=== PATIENT | female | born 1955 | race Hispanic/Latino ===

== ENCOUNTER → 2019-06-26 | Day surgery (SDC) | payer OTHER ==
[~2019-06-26] MED LIST: ASPIR 8181 MG PO; CRESTOR10 MG PO; FENTANYL CITRATE/PF 100MCG/2 ML INJ ONE; GABAPENTIN300 MG PO; GLIMEPIRIDE2 MG PO; HYOSCYAMINE 0.125 MG TAB ONE; LISINOPRIL2.5 MG PO; METFORMIN HCL500 MG PO; MIDAZOLAM HCL 2 MG/2 ML VIAL ONE; OXYBUTYNIN CHLOR5 M1 PO; OZEMPIC1 MG/0.75 INJ; PROPOFOL IV EMULSION 10 MG/ML 20 ML VIAL ONE; VASCEPA1 GM PO
--- NOTE | 2019-06-26 18:09 | Operative Report ---
DATE OF PROCEDURE: 06/26/2019 SURGEON: Jono Gómez MD PROCEDURE: EGD with polypectomy. INDICATIONS FOR COLONOSCOPY: Surveillance colonoscopy, personal history of colon polyps. MEDICATIONS: The patient was done under MAC. Please see anesthesiologist's note. PROCEDURE IN DETAIL: With the patient in left lateral decubitus position, flexible fiberoptic Olympus colonoscope was inserted into the rectum with ease and advanced all the way to the cecum. A minute polyp was noted in the cecum that was removed per the cold biopsy forceps. Diverticular disease was noted throughout and other than diverticulosis, the colon appeared to be within normal limits. The scope was then retroflexed into the distal rectum and small internal hemorrhoids were noted, none of which was actively bleeding. The scope was then straightened out, it was subsequently withdrawn. The patient tolerated procedure well. IMPRESSION: 1. Cecal polyp, minute, removed per cold biopsy forceps. 2. Pandiverticulosis. 3. Internal hemorrhoids, none actively bleeding. PLAN: Follow up histology. Initiate high-fiber, low-fat diet. Initiate high-fiber supplement. The patient might benefit from a followup colonoscopy in 3 to 5 years. Jono Gómez MD [facility] [place]/[facility] /[id number] cc: Demetrio Gómez MD
== END | disposition home or self-care (01) ==
LOC: OR 13:26
PROVIDERS: ATTEND Internal Medicine Gastroenterology
DX: K59.09 Other constipation (principal); K63.5 Polyp of colon; K57.30 Diverticulosis of large intestine without perforation or abscess without bleeding; K64.8 Other hemorrhoids; I10 Essential (primary) hypertension; E78.00 Pure hypercholesterolemia, unspecified; E11.40 Type 2 diabetes mellitus with diabetic neuropathy, unspecified; Z01.810 Encounter for preprocedural cardiovascular examination; Z79.82 Long term (current) use of aspirin; Z79.84 Long term (current) use of oral hypoglycemic drugs; Z68.41 Body mass index [BMI] 40.0-44.9, adult
CPT/HCPCS: 36415; 45380; 82948; 93005; J2250; J2704; J3010

== ENCOUNTER 2020-01-25 15:39 | Emergency (ER) | payer OTHER ==
[~2020-01-25] VITALS: Ht 160 cm; Wt 107.5 kg
[~2020-01-25 15:39] MED LIST changes: -FENTANYL CITRATE/PF 100MCG/2 ML INJ ONE; -HYOSCYAMINE 0.125 MG TAB ONE; -MIDAZOLAM HCL 2 MG/2 ML VIAL ONE; -PROPOFOL IV EMULSION 10 MG/ML 20 ML VIAL ONE
--- OUTSIDE RECORDS SUMMARY | 2020-01-25 15:42 | XMS REPORT ---
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 D51.1 Active Problem Vitamin D deficiency, unspecified E55.9 Active Problem Essential (primary) hypertension I10 Active Problem Other fatigue R53.83 Active Problem Type 2 diabetes mellitus with hyperglycemia E11.65 Active Problem Hyperlipidemia, unspecified E78.5 Active Assessment Body mass index (BMI) 40.0-44.9, adult Z68.41 Active Problem Deficiency of other specified B group vitamins E53.8 Active Assessment Hyperlipidemia, unspecified E78.5 Active Problem Type 2 diabetes mellitus wit h diabetic polyneuropathy, without long-term current use of insulin E11.42 Active Assessment Type 2 diabetes mellitus with hyperglycemia E11.65 Active Problem Body mass index (BMI) of 40.0-44.9 in adult Z68.41 Active Medications Medication Code System Code Instructions Start Date End Date Status Dosage Vascepa [facility] [address]-06 1 GRAM Sep 09, 2016 Active not defined Glumetza [facility] 46417544465 1000 MG Orally BID Aug 04, 2014 Act micheal 1 tablet with evening meal Lisinopril [facility] 67372821046 2.5 MG Orally Once a day Active 1 tablet Glucophage XR [facility] 11129581991 500 MG Active TAKE TWO (2) TABLET(S) BY MOUTH TWICE A DAY. Oxybutynin Chloride ER [facility] 33767482859 15 MG Orally Once a day Active TAKE ONE (1) TABLET(S) BY MOUTH EVERY DAY. MetFORMIN HCl ER [facility] 04451501705 500 MG Orally Once a day Active 1 tablet with evening meal Gabapentin [facility] 59343195568 300 MG Orally Three times a day Aug 192016 Active 1 capsule Aspirin 81 [facility] 08711204521 81 MG Orally Once a day A ctive 1 tablet Glimepiride [facility] 96307282307 1 MG Orally Once a day A ctive 1 tablet with breakfast or the first main meal of the day Rosuvastatin Calcium [facility] 73608747231 20 MG Orally Once a day Active 1 tablet Vital Signs Date/Time: January 19, 2020 BMI 43.6 Index Weight 238.4 lbs Height 62.0 in Cardiac Monitoring Heart Rate 73 /min Blood Pressure Diastolic 60 mm Hg Blood Pressure Systolic 107 mm Hg Results No Known Results Summary Purpose [employer]ClinicalWorks Submission
--- OUTSIDE RECORDS SUMMARY | 2020-01-25 15:42 | XMS REPORT | Continuity of Care Document ---
Author Author [facility] t Organization [facility] Address [address] [place] [address] Phone Unavailable Care Team Providers Care Court Attendant Name Role Phone Unavailable Unavailable Problems Condition Name Condition Details Condition Category Status Onset Date Resolution Date Last Treatment Date Treating Clinician Comments Source Type 2 diabetes mellitus with hyperglyce lan, without long-term current use of insulin Type 2 diabetes mellitus with hyperglycemia, without long-term current use of insulin Active Problem 01/24/2020 [id number] Problem Active 2020-01-24 04:10:14 Natalie Rae 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 Active Problem 01/24/2020 2.16.840.1.980461.4.391.11.718727 Problem Active 2020-01-24 04:10:14 Sridhar Rae Vitamin D deficiency Monika min D deficiency Active Problem 01/24/2020 2.16.840.1.537024.4.391.11.146553 Problem Active 2020-01-24 04:10:14 Natalie Rae Body mass index (BMI) 40.0-44.9, adult Body mass index (BMI) 40.0-44.9, adult Active Problem 01/24/2020 2.16.840.1.581578.4.391.11.954169 Problem Active 2020-01-24 04:10:14 Sridhar Rae Vitamin B12 deficiency anemia due to michael ective vitamin B12 malabsorption with proteinuria Vitamin B12 defi ciency anemia due to selective vitamin B12 malabsorption with proteinuria Active Problem 01/24/2020 2.16.840.1.304614.4.391.11.706260 Problem Active 2020-01-24 04:10:14 Natalie Rae Essential (primary) hypertension Essential (primary) hypertension Active Problem 01/24/2020 2.16.840.1.261041.4.391.11.272946 Problem Active 2020-01-24 04:10:14 Memor gila Rae Other fatigue Othe r fatigue Active Problem 01/24/2020 2.16.840.1.114467.4.391.11.641835 Problem Active 2020-01-24 04:10:14 [facility] Hyperlipidemia, unspecified Hy perlipidemia, unspecified Active Problem 01/24/2020 2.16.840.1.755243.4.391.11.387650 Problem Ac tive 2020-01-24 04:10:14 [facility] Deficiency of other specified B group vitamins Deficiency of other specified B group vitamins Active Problem 01/24/2020 2.16.840.1.292489.4.391.11.624834 Problem Active 2020-01-24 04:10:14 [facility] Type 2 diabetes mellitus with diabetic p olyneuropathy, without long-term current use of insulin Type 2 diabetes mellitus with diabetic polyneuropathy, without long-term current use of insulin Active Problem 01/24/2020 2.16.840.1.666864.4.391.11.027852 Problem Active 2020-01-24 04:10:14 [facility] Bladder disorder Blad shankar disorder Active Diagnosis 01/24/2020 2.16.840.1.547125.4.391.11.693946 Diagnosis Active 2020-01-24 04:10:14 [facility] Allergies, Adverse Reactions, Alerts Allergy Name Allergy Type Status Severity Reaction(s) Onset Date Inacti ve Date Treating Clinician Comments Source N.K.D.A. N.K.D.A. Active Info Not Available 2020-01-19 00:00:00 [facility] Medications Ordered Medication Name Filled Medication Name Start Date Stop Da te Current Medication? Ordering Clinician Indication Dosage Frequency Signature (SIG) Comments Components Source Lisinopril 2020-01-24 04:10:14 Yes TRINA QUICK 1 tablet [facility] Glucophage XR 2020-01-24 04:10:14 Yes TRINA QUICK TAKE TWO (2) TABLET(S) BY MOUTH TWICE A DAY. [facility] Oxybutynin Chloride ER 2020-01-24 04:10:14 Yes TRINA MATT BISON TAKE ONE (1) TABLET(S) BY MOUTH EVERY DAY. Su Hanson MetFORMIN HCl ER 2020-01-24 04:10:14 Yes TRINA YNES 1 tablet with evening meal [facility] Aspirin 81 2020-01-24 04:10:14 Yes TRINA YNES 1 tablet [facility] Glimepiride 2020-01-24 04:10:14 Yes TRINA YNES 1 tablet with breakfast or the first main meal of the day [facility] Rosuvastatin Calcium 2020-01-24 04:10:14 Yes TRINA YNES 1 tablet [facility] Lisinopril 2020-01-24 04:10:14 Yes TRINA YNES TAKE ONE (1) TABLET(S) BY MOUTH ONCE A DAY. [facility] Farxiga 2020-01-24 04:10:14 Yes TRINA YNES TAKE ONE (1) TABLET(S) BY MOUTH ONCE A DAY. [facility] Vascepa 2020-01-24 04:10:14 Yes TRINA YNES TAKE TWO (2) CAPSULE(S) BY MOUTH TWICE A DAY WITH MEALS. Ada zuniga [place] Ozempic 2020-01-24 04:10:14 Yes TRINA YNES 1m g as directed [facility] 2020-01-19 00:00:00 Yes TRINA YNES 1 tablet at least 30 minutes before first food, beverage or other oral medicine of the day [facility] Rybelsus 2020-01-19 00:00:00 Yes TRINA YNES a s directed [facility] Farxiga 2020-01-19 00:00:00 Yes TRINA YNES 1 tablet [facility] Oxybutynin 2016-11-21 00:00:00 Yes TRINA YNES not defined [facility] Vascepa 2016-09-09 00:00:00 Yes TRINA YNES no t defined [facility] Gabapentin 2016-09-09 00:00:00 Yes TRINA YNES 1 capsule [facility] Trulicity 2015-09-01 00:00:00 Yes TRINA YNES not defined [facility] Decara 2015-05-18 00:00:00 Yes TRINA YNES not defined [facility] Glumetza 2014-08-04 00:00:00 Yes TRINA YNES 1 tablet with evening meal [facility] [place] Vital Signs Vital Name Observation Time Observation Value Comments Source Weight 2020-01-19 17:00:00 [facility] [place] Height 2020-01-19 17:00:00 [facility] [place] Heart Rate 2020-01-19 17:00:00 [facility] [place] Diastolic (mm Hg) 2020-01-19 17:00:00 [facility] Systolic (mm Hg) 2020-01-19 17:00:00 Sridhar [facility] [place] Weight 2020-01-19 16:50:00 [facility] Height 2020-01-19 16:50:00 [facility] [place] Heart Rate 2020-01-19 16:50:00 [facility] [place] Diastolic (mm Hg) 2020-01-19 16:50:00 [facility] [place] Systolic (mm Hg) 2020-01-19 16:50:00 Sridhar [facility] [place] Procedures This patient has no known procedures. Encounters Start Date/Time End Date/Time [facility] Source 2020-01-19 12:00:00 2020-01-19 12:00:00 Outpatient Trina Quick MD [place] [id number] [employer] 2020-01-19 11:50:00 2020-01-19 11:50:00 Outpatient Trina Quick MD [place] [id number] [employer] Results Test Description Test Time Test Comments Results Result Comments Source SCR MAMM BILATERAL SANDY CAD DIGITAL 2019-07-30 08:33:09 - SCR MAMM BILATERAL SANDY CAD DIGITALBILATERAL DIGITAL SCREENING MAMMOGRAM 3D/2D WITH CAD: 07/30/2019CLINICAL: Asymptomatic. Digital breast tomosynthesis was performed in addition to routine CC and MLO views. Current mammographic images were evaluated by either a [employer] M-Vu or a [employer] ImageChecker CAD (computer aided detection system). No prior exams were available for comparison. The tissue of both breasts is predominantly fatty. No suspicious mass, architectural distortion, malignant type calcification, or lymph node abnormality detected. IMPRESSION: NEGATIVEThere is no mammographic evidence of malignancy. Resume annual screening mammography in one year. Augustin Aquino M.D. ss/penrad:07/30/2019 08:33:09 Office Clerk Assistant: Billie QUIROZ, [facility]-FWletter sent: BIRADS 1-2 Normal Mammogram BI-RADS: 1 Negative
--- OUTSIDE RECORDS SUMMARY | 2020-01-25 15:42 | XMS REPORT ---
Author Author MARKELL QUICK Organization [employer] Address Unknown Phone Unavailable Care Team Providers Care Master Machinist Name Role Phone TRINA QUICK CP Unavailable Allergies, Adverse Reactions, Alerts Substance Reaction Event Type N.K.D.A. 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 malabsorption with proteinuria D51.1 Active Assessment Vitamin D deficiency, unspecified E55.9 Active Problem BMI 40.0-44.9, adult Z68.41 Active Problem Type 2 diabetes mellitus with hyperglycemia E11.65 Active Problem Deficiency of other specified B group vitamins E53.8 Active Problem Body mass index (BMI) 40.0-44.9, adult Z68.41 Active Problem Hyperlipidemia, unspecified E78.5 Active Assessment Essential (primary) hypertension I10 Active Assessment Body mass index (BMI) 40.0-44.9, adult Z68.41 Active Assessment Bladder disorder N32.9 Active Assessment Hyperlipidemia, unspecified E78.5 Active Problem Body mass index (BMI) of 40.0-44.9 in adult Z68.41 Active Problem Type 2 diabetes mellitus wit h hyperglycemia, without long-term current use of insulin E11.65 Active Assessment Type 2 diabetes mellitus wit h hyperglycemia, without long-term current use of insulin E11.65 Active Problem Vitamin D deficiency E55.9 Active Assessment half-way use of drug Z79.899 Active Problem Other halfway (current) drug therapy Z79.899 Active Medications Medication Code System Code Instructions Start Date End Date Status Dosage Vascepa [facility] [address]-65 1 GRAM Sep 09, 2016 Active not defined Lisinopril [facility] 35016483047 10 MG Active TAKE ONE (1) TABLET(S) BY MOUTH ONCE A DAY. Lisinopril [facility] 54552169435 2.5 MG Orally Once a day Active 1 tablet Gabapentin [facility] 02766221360 300 MG Orally Three times a day Aug 192016 Active 1 capsule Rybelsus [facility] 53184634596 7 MG Orally Once a day January 19, 2020 Active 1 tablet at least 30 minutes before first food, beverage or other oral medicine of the day Hubert [facility] [address]-60 50,000 UNIT May 18, 2015 Active not defined Rosuvastatin Calcium [facility] 43749566679 20 MG Orally Once a day Active 1 tablet Oxybutynin [facility] [address]-77 15 MG November 21, 2016 Active not defined Farxiga [facility] 70609832409 10 MG Active TAKE ONE (1) TABLET(S) BY MOUTH ONCE A DAY. Trulicity [facility] [address]-27 0.75 MG/0.5 Sep 01, 2015 Activ e not defined Rybelsus [facility] 08347810540 3 MG Orally Once a day January 19, 2020 Active as directed Vascepa [facility] 55311259939 1 GM Active TAKE TWO (2) CAPSULE(S) BY MOUTH TWICE A DAY WITH MEALS. Farxiga [facility] 75123556323 10 MG Orally Once a day January 19, 2020 Active 1 tablet Glumetza [facility] 19223176930 1000 MG Orally BID Aug 04, 2014 Act micheal 1 tablet with evening meal MetFORMIN HCl ER [facility] 59388874875 500 MG Orally Once a day Active 1 tablet with evening meal Ozempic [facility] 24909946025 1 MG/DOSE Subcutaneous once a week Active 1mg as directed Glimepiride [facility] 47399640289 1 MG Orally Once a day I nactive 1 tablet with breakfast or the first main meal of the day Glucophage XR [facility] 73731642719 500 MG Active TAKE TWO (2) TABLET(S) BY MOUTH TWICE A DAY. Oxybutynin Chloride ER [facility] 83583326941 15 MG Orally Once a day Active TAKE ONE (1) TABLET(S) BY MOUTH EVERY DAY. Aspirin 81 [facility] 35321802652 81 MG Orally Once a day A ctive 1 tablet Vital Signs Date/Time: January 19, 2020 BMI 43.6 Index Weight 238.4 lbs Height 62.0 in Cardiac Monitoring Heart Rate 73 /min Blood Pressure Diastolic 60 mm Hg Blood Pressure Systolic 107 mm Hg Results No Known Results Summary Purpose eClinicalWorks Submission
--- OUTSIDE RECORDS SUMMARY | 2020-01-25 15:42 | XMS REPORT | Continuity of Care Document ---
Author Author [employer], MARKELL [email or web address] Address Unknown Phone Unavailable Care Team Providers Care Semiconductor Processor Name Role Phone [email or web address] Unavailable Un available Problems Problem Status Onset Date Classification Date Reported Comments Source Type 2 diabetes mellitus with hyperglyce lan, without long-term current use of insulin Active Problem 01/24/2020 2.16.840.1.731222.4.391.11.366674 Other skilled nursing (current) drug therapy Active Problem 03/2020 2.16.840.1.537153.4.391.11.326848 Vitamin D deficiency Active Problem 01/24/2020 2.16.840.1.043042.4.391.11.3 57840 Body mass index (BMI) 40.0-44.9, adult Active Problem 03/2020 2.16.840.1.151455.4.391.11.024589 Vitamin B12 deficiency anemia due to michael ective vitamin B12 malabsorption with proteinuria Active Problem 01/24/2020 2.16.840.1.216528.4.391.11.013967 Vitamin D deficiency, unspecified Active Problem 03/2020 2.16.840.1.795025.4.391.11.3 90525 Essential (primary) hypertension Active Problem 03/2020 2.16.840.1.234725.4.391.11.3 65316 Other fatigue Active Problem 01/24/2020 2.16.840.1.827298.4.391.11.165900 Type 2 diabetes mellitus with hyperglycemia Active Problem 01/24/2020 2.16.840.1.126232.4.391.11.164841 Hyperlipidemia, unspecified Ac tive Problem 03/2020 2.16.840.1.846665.4.391.11.3 28623 Deficiency of other specified B group vitamins Active Problem 01/24/2020 2.16.840.1.102839.4.391.11.817212 Type 2 diabetes mellitus with diabetic p olyneuropathy, without long-term current use of insulin Active Problem 01/24/2020 2.16.840.1.004576.4.391.11.3 12372 Body mass index (BMI) of 40.0-44.9 in adult Active Problem 01/24/2020 2.16.840.1.028390.4.391.11.149255 Bladder disorder Active Diagnosis 01/24/2020 2.16.840.1.376853.4.391.11.3 70605 shelter use of drug Active Diagnosis 01/24/2020 2.16.840.1.163890.4.391.11.3 09824 Medications Medication Details Route Status Patient Instructions Ordering Provider Order Date Source Rybelsus 1 tablet at least 30 minutes before first food, beverage or other oral medicine of the day Orally Active 7 MG Orally Once a day [facility] 01/19/2020 2.16.840.1.566093.4.391.11.996028 Rybelsus as directed Orally Active 3 MG Orally Once a day [facility] 01/19/2020 2.16.840.1.942570.4.391.11.248582 Farxiga 1 tablet Orally Active 10 MG Orally Once a day [facility] 01/19/2020 2.16.840.1.879273.4.391.11.500643 Oxybutynin not defined NA Active 15 MG [facility] 11/21/2016 2.16.840.1.571482.4.391.11.414599 Vascepa not defined NA Active 1 GRAM [facility] 09/09/2016 2.16.840.1.994943.4.391.11.001395 Gabapentin 1 capsule Orally Active 300 MG Orally Three elisabeth es a day [facility] 09/09/2016 2.16.840.1.857119.4.391.11.312611 Trulicity not defined NA Active 0.75 MG/0.5 [facility] 09/01/2015 2.16.840.1.033420.4.391.11.075941 Decara not defined NA Active 50,000 UNIT [facility] 05/18/2015 2.16.840.1.195588.4.391.11.195068 Glumetza 1 tablet with evening meal Orally Active 1000 MG Orally BID [facility] 08/04/2014 2.16.840.1.664471.4.391.11.705746 Lisinopril 1 tablet Orally Active 2.5 MG Orally Once a da y [facility] .16.840.1.308892.4.391.11.483245 Glucophage XR TAKE TWO (2) TAB LET(S) BY MOUTH TWICE A DAY. NA Active 500 MG [facility] 2840.1.220096.4.391.11.470072 Oxybutynin Chloride ER TAKE ON E (1) TABLET(S) BY MOUTH EVERY DAY. Orally Active 15 MG Orally Once a day [facility] 840.1.704112.4.391.11.3 11702 MetFORMIN HCl ER 1 tablet with evening meal Orally Active 500 MG Orally Once a day [facility] 840.1.892232.4.391.11.167653 Aspirin 81 1 tablet Orally Active 81 MG Orally Once a day [facility] 840.1.824336.4.391.11.288248 Glimepiride 1 tablet with carlos kfast or the first main meal of the day Orally Active 1 MG Orally Once a day [facility] N .840.1.649493.4.391.11.3 64753 Rosuvastatin Calcium 1 tablet Orally Active 20 MG Orally Once a day [facility] 2840.1.369647.4.391.11.804027 Lisinopril TAKE ONE (1) TABLET (S) BY MOUTH ONCE A DAY. NA Active 10 MG [facility] 2.16840.1.987065.4.391.11.485038 Farxiga TAKE ONE (1) TABLET(S) BY MOUTH ONCE A DAY. NA Active 10 MG [facility] 2840.1.099997.4.391.11.714465 Vascepa TAKE TWO (2) CAPSULE(S ) BY MOUTH TWICE A DAY WITH MEALS. NA Active 1 GM [facility] 2.16.840.1.726956.4.391.11.879455 Ozempic 1mg as directed Subcutaneous Active 1 MG/DOSE Subcutaneous once a week [facility] 2.16.840.1.699429.4.391.11.3 23248 Allergies, Adverse Reactions, Alerts Substance Category Reaction Severity Reaction type Status Date Reported Comments Source N.K.D.A. Adverse Reaction Info Not Available Adverse Reaction 01/19/2020 2.16.840.1.086637.4.391.11.3 20434 Immunizations No Data Provided for This Section Results No Data Provided for This Section Pathology Reports No Data Provided for This Section Diagnostic Reports No Data Provided for This Section Consultation Notes No Data Provided for This Section Discharge Summaries No Data Provided for This Section History and Physicals No Data Provided for This Section Vital Signs Vital Sign Value Date Comments Source Weight 238.4 01/19/2020 2.16.840.1.708039.4.391.11.3 77571 Height 62.0 01/19/2020 2.16.840.1.731095.4.391.11.3 09731 Heart Rate 73 01/19/2020 2.16.840.1.438446.4.391.11.3 01734 Diastolic (mm Hg) 60 01/19/2020 2.16.840.1.190822.4.391.11.294146 Systolic (mm Hg) 107 01/19/2020 2.16.840.1.598566.4.391.11.030283 Weight 238.4 01/19/2020 2.16.840.1.240251.4.391.11.3 73835 Height 62.0 01/19/2020 2.16.840.1.466865.4.391.11.3 27251 Heart Rate 73 01/19/2020 2.16.840.1.957406.4.391.11.3 97940 Diastolic (mm Hg) 60 01/19/2020 2.16.840.1.641105.4.391.11.544567 Systolic (mm Hg) 107 01/19/2020 2.16.840.1.118674.4.391.11.991226 Encounters No Data Provided for This Section Procedures No Data Provided for This Section Assessment and Plan No Data Provided for This Section Plan of Care No Data Provided for This Section Social History No Data Provided for This Section Family History No Data Provided for This Section Advance Directives No Data Provided for This Section Functional Status No Data Provided for This Section
[2020-01-25] MEDS ORDERED: KETOROLAC TROMETHAMINE 30 MG/ML VIAL IV STA (15:58)
[2020-01-25] MEDS ORDERED: DEXAMETHASONE SOD PHOS 10 MG/1 ML VIAL IV ONE (16:00)
[2020-01-25] MEDS ORDERED: DIPHENHYDRAMINE HCL INJ 50 MG/ML VIAL IV ONE (16:00)
--- NOTE | 2020-01-25 16:34 | Diagnostic Imaging Report ---
History: Worst headache ever Comparison studies: None Technique: Axial images were obtained from the skull base to the vertex. Coronal and sagittal reconstructions obtained from the axial data. Dose modulation, iterative reconstruction, and/or weight based adjustment of the mA/kV was utilized to reduce the radiation dose to as low as reasonably achievable. Findings: Scalp/skull: No abnormalities. No fractures, blastic or lytic lesions. Extra-axial spaces: No masses. No fluid collections. Brain sulci: Appropriate for age. Ventricles: Normal in size and configuration. No hydrocephalus. Parenchyma: No abnormal densities. No masses, hemorrhage, acute or chronic cortical vascular insults. Sellar/suprasellar region: No abnormalities Craniocervical junction: Patent foramen magnum. No Chiari one malformation. IMPRESSION: No abnormalities . Signed by: DR Jak Leyva M.D. on 01/25/2020 4:31 PM
[2020-01-25] MEDS ORDERED: FIORICET 50-301 EACH PO (16:50)
--- NOTE | 2020-01-25 16:57 | Emergency Department Note ---
History of Present Illnes History of Present Illness Chief Complaint: Headache History of Present Illness This is a 64 year old female Chief Complaint Comment pt states headache x 3 hours, took tylenol without relief then took 2 81 mg asa abd headache is much better per pt. denied SOB,Cp, or dizziness. no neuro deficit noted at this time. did say she was having weakness generalized earlier. . Historian: Patient Arrival Mode: Car Onset (how long ago): day(s) (2) Location: right side of head Quality: sharp Radiation: Denies non-radiation, Denies back, Denies neck, Denies extremity, Denies abdomen, Denies periumbilical, Denies flank, Denies proximal, Denies distal, Denies other Severity: moderate Onset quality: sudden Duration (how long): day(s) (2) Timing of current episode: intermittent Progression: waxing and waning Context: Denies recent illness, Denies recent surgery, Denies recent immobilization, Denies recent travel, Denies trauma/injury, Denies new medications, Denies hx of DVT/PE, Denies non-compliance w/ medications, Denies other Relieving factors: none Exacerbating factors: none Associated symptoms: Reports denies other symptoms Treatments prior to arrival: none Past Medical/Family History Physician Review I have reviewed the patient's past medical and family history. Any updates have been documented here. Past Medical History Recent Fever: No Clinical Suspicion of Infectio: No New/Unexplained Change in Ment: No Past Medical History: Hypertension, Diabetes, Hypothyroidism Past Surgical History: Cholecysctectomy, Appendectomy, T&A, Tubal Ligation Social History Smoking Cessation: Never Smoker Counseling Performed: No Alcohol Use: None Any Illegal Drug Use: No TB Exposure/Symptoms: No Physically hurt or threatened: No Family History Family history of heart diseas: No Other Last Tetanus: utd Any Pre-Existing Lines (PICC,: No Is patient up to date on immun: Yes Last Flu: 2020 Last Pneumovax: unk Review of Systems Review of Systems Constitutional: Reports no symptoms EENTM: Reports no symptoms Cardiovascular: Reports no symptoms Respiratory: Reports no symptoms Gastrointestinal: Reports no symptoms Genitourinary: Reports no symptoms Musculoskeletal: Reports no symptoms Integumentary: Reports no symptoms Neurological: Reports as per HPI, Reports headache Psychological: Reports no symptoms Endocrine: Reports no symptoms Hematological/Lymphatic: Reports no symptoms Review of other systems All other systems reviewed and negative. Physical Exam Related Data Allergies: Coded Allergies: sesame seed (Verified Allergy, Severe, 06/24/19) HARD TO BREATHE AND RASH Triage Vital Signs Vital Signs Date Time Temp Pulse Resp B/P (MAP) Pulse Ox O2 Delivery O2 Flow Rate FiO2 01/25/20 15:49 98.3 70 17 108/52 98 Vital signs reviewed: Yes Physical Exam CONSTITUTIONAL Constitutional: Reports well-developed, Reports well-nourished HENT HENT: Reports normocephalic, Reports atraumatic, Reports oropharynx clear/moist, Reports nose normal HENT L/R: Reports left ext ear normal, Reports right ext ear normal EYES Eyes: Reports PERRL, Reports conjunctivae normal NECK Neck: Reports ROM normal PULMONARY Pulmonary: Reports effort normal, Reports breath sounds normal CARDIOVASCULAR Cardiovascular: Reports regular rhythm, Reports heart sounds normal, Reports capillary refill normal, Reports normal rate GASTROINTESTINAL Abdominal: Reports soft, Reports nontender, Reports bowel sounds normal GENITOURINARY Genitourinary: Reports exam deferred SKIN Skin: Reports warm, Reports dry MUSCULOSKELETAL Musculoskeletal: Reports ROM normal NEUROLOGICAL Neurological: Reports alert, Reports oriented x 3, Reports no gross motor or s ensory deficits PSYCHOLOGICAL Psychological: Reports mood/affect normal, Reports judgement normal Results Imaging Imaging results reviewed: Yes Assessment & Plan Medical Decision Making MDM bleed tumor Reassessment Reassessment time: 16:55 Reassessment better Assessment & Plan Final Impression: (1) Headache Depart Disposition: HOME, SELF-CARE Last Vital Signs Date Time Temp Pulse Resp B/P (MAP) Pulse Ox O2 Delivery O2 Flow Rate FiO2 01/25/20 15:49 98.3 70 17 108/52 98 Home Meds Active Scripts Butalb/Acetaminophen/Caffeine (Fioricet 50-300-40 mg Capsule) 1 Each Capsule, 1 TAB PO TID for pain, #15 Prov:SARAH BOURNE MD 01/25/20 Reported Medications Aspirin (ASPIR 81) 81 Mg Tablet.dr, 81 MG PO HS 06/24/19 Icosapent Ethyl (Vascepa) 1 Gm Capsule, 1 GM PO HS 06/24/19 Rosuvastatin Calcium (CRESTOR) 10 Mg Tab, 20 MG PO HS THERAPEUTICALLY SUBSTITUTED WITH SIMVASTATIN 40MG 06/24/19 Metformin Hcl (METFORMIN HCL) 500 Mg Tablet, 1000 MG PO BID, #60 TAB 06/24/19 Gabapentin (GABAPENTIN) 300 Mg Capsule, 300 MG PO HS, #60 CAP 06/24/19 Oxybutynin Chloride (OXYBUTYNIN CHLORIDE ER) 5 Mg Tab.er.24, 15 MG PO HS 06/24/19 Lisinopril (LISINOPRIL) 2.5 Mg Tablet, 2.5 MG PO HS, #30 TAB 06/24/19 Glimepiride (GLIMEPIRIDE) 2 Mg Tablet, 1 MG PO HS, TAB 06/24/19 Semaglutide (Ozempic) 1 Mg/0.75 Ml Pen.injctr, 1 MG INJ WEEKLY 06/24/19 Medications in the ED Dexamethasone Sodium Phosphate 10 mg ONCE ONCE IV Last administered on 01/25/20at 16:14; Admin Dose 10 MG; Start 01/25/20 at 16:00; Stop 01/25/20 at 16:09; Status DC Diphenhydramine HCl 25 mg NOW ONCE IV Last administered on 01/25/20at 16:10; Admin Dose 25 MG; Start 01/25/20 at 16:00; Stop 01/25/20 at 16:11; Status DC Ketorolac Tromethamine 15 mg ONCE STAT IV Last administered on 01/25/20at 16:15; Admin Dose 15 MG; Start 01/25/20 at 15:58; Stop 01/25/20 at 16:12; Status DC SARAH BOURNE MD Jan 25, 2020 16:57
== END 2020-01-25 17:05 | disposition home or self-care (01) ==
LOC: FSED 15:39
DX: R51 Headache (principal); R53.1 Weakness; I10 Essential (primary) hypertension; E11.9 Type 2 diabetes mellitus without complications; E03.9 Hypothyroidism, unspecified
CPT/HCPCS: 70450; 99284; J1100; J1200; J1885